=== PATIENT | female | born 1960 | race Caucasian/White ===

== ENCOUNTER → 2018-09-02 | Outpatient (CLI) | payer OTHER ==
[~2018-09-02] MED LIST: REGADENOSON 0.4 MG/5 ML DISP.SYRIN. IV ONE
--- NOTE | 2018-09-03 16:16 | PCVCIMAG ---
APPROVED REPORT Study performed: 09/02/2018 08:26:39 EXAM: Comprehensive 2D, Doppler, and color-flow Echocardiogram Patient Location: Echo lab Status: routine BSA: 1.88 HR: 60 bpmBP: 132/90 mmHg Rhythm: NSR Other Information Study Quality: Adequate Indications Dyspnea Palpitations Chest Pain 2D Dimensions IVSd: 8.74 (7-11mm) LVDd: 43.65 mm PWd: 8.47 (7-11mm)Ascending Ao: 30.60 (22-36mm) LVDs: 26.22 (25-40mm) Left Atrium: 37.51 (27-40mm) Aortic Root: 28.54 mm LV Single Plane 4CH: 66.13 % LV Single Plane 2CH: 54.31 % Biplane EF: 61.0 % Volumes Left Atrial Volume (Systole) Single Plane 4CH: 63.04 mLSingle Plane 2CH: 57.23 mL LA ESV Index: 33.00 mL/m2 Aortic Valve AoV Peak Jhon.: 1.94 m/s AO Peak Gr.: 15.13 mmHgLVOT Max P.28 mmHg LVOT Max V: 1.03 m/s Mitral Valve E/A Ratio: 1.2 MV Decel. Time: 220.75 ms MV E Max Jhon.: 0.98 m/s MV A Jhon.: 0.80 m/s IVRT: 100.35 ms Pulmonary Valve PV Peak Jhon.: 1.14 m/sPV Peak Gr.: 5.23 mmHg Pulmonary Vein P Vein S: 0.30 m/sP Vein A: 0.30 m/s P Vein D: 0.48 m/sP Vein A Dur.: 141.9 msec P Vein S/D Ratio: 0.63 Tricuspid Valve TR Peak Jhon.: 2.71 m/s TR Peak Gr.: 29.35 mmHg Left Ventricle The left ventricle is normal size. There is normal LV segmental wall motion. There is normal left ventricular wall thickness. Left ventricular systolic function is normal. The left ventricular ejection fraction is within the normal range. LVEF is 60-65%. Grade II - pseudonormal filling dynamics. Right Ventricle The right ventricle is normal size. The right ventricular systolic function is normal. Atria The left atrium size is normal. The right atrium size is normal. Aortic Valve Aortic valve is trileaflet. The aortic valve is mildly calcified. No aortic regurgitation is present. There is no aortic valvular stenosis. Mitral Valve The mitral valve is normal in structure. Trace mitral regurgitation. No evidence of mitral valve stenosis. Tricuspid Valve The tricuspid valve is normal in structure. Mild tricuspid regurgitation with PAP of 36 mmHg. Pulmonic Valve The pulmonary valve is normal in structure. Mild pulmonic regurgitation. Great Vessels The aortic root is normal in size. IVC is normal in size and collapses >50% with inspiration. Pericardium There is no pericardial effusion. There is no pleural effusion. <Conclusion> The left ventricle is normal size. LVEF is 60-65%. Aortic valve is trileaflet. The aortic valve is mildly calcified. The mitral valve is normal in structure. Trace mitral regurgitation. The tricuspid valve is normal in structure. Mild tricuspid regurgitation with PAP of 36 mmHg. The pulmonary valve is normal in structure. Mild pulmonic regurgitation. There is no pericardial effusion. There is no pleural effusion.
--- NOTE | 2018-09-04 11:48 | PCVCIMAG ---
APPROVED REPORT Imaging Protocol: Rest Tc-99m/Stress Tc-99m 1 day Study performed: 09/02/2018 09:29:12 Indication: Chest discomfort, Palpitations, Lightheadedness Patient Location: Out-Patient Stress Nurse: Franca Plaza RN, Kristen Patrick RN [place] Tech:STEFAN Ron Ht: 5 ft 6 in Wt: 165 lbs BSA: 1.84 m2 HR: 63 bpm BP: 150/70 mmHg BMI: 26.62 Medical History Medical History: Hyperlipidemia, HTN, Current Smoker Medications: Metoprolol, Lipitor, HCTZ Allergies: No known drug allergies Cardiac Risk Factors: Age Pretest Chest Pain Characteristics: No chest pain Exercise History: Physically active Meds Held (24 hrs): Metoprolol Resting Data Rest SPECT myocardial perfusion imaging was performed in supine position 45 minutes following the intravenous injection of 10.6 mCi of Tc-99m Sestamibi. Time of rest injection: 914 Date: 09/02/2018 Administration Route: IV Administration Site: Right AC Pharmacologic Stress Pharmacologic stress test was performed by injecting Regadenoson 0.4 mg IV push over 10-15 seconds immediately followed by the intravenous injection of 34.1 mCi of Tc-99m Sestamibi. Time of stress injection: 0 Date: 09/02/2018 Administration Route: IV Administration Site: Right AC Gated Stress SPECT was performed 45 minutes after stress injection. The images were gated to evaluate regional wall motion and calculate left ventricular ejection fraction. Stress Test Details Stress Test: Pharmacologic stress was paired with low level exercise. Reason for pharmacologic stress test: unable to achieve Philip protocol.. HRMax Heart Rate (APMHR): 163 bpm Resting HR: 63 bpmTarget HR (85% APMHR): 138 bpm Max HR Achieved: 101 bpm % of APMHR: 61 Recovery HR: 81 bpm BP Resting BP: 150/70 mmHg Max BP: 142/70 mmHg Recovery BP: 130/60 mmHg ECG Resting ECG: Sinus Rhythm, nonspecific ST-T abnormalities Stress ECG: Sinus Tachycardia, nonspecific ST-T abnormalities Recovery ECG: Sinus Rhythm, nonspecific ST-T abnormalities Clinical Reason for Termination: Completed protocol Stress Symptoms: Nausea, Leg Fatigue Exercise duration: 4 min 00 sec Exercise capacity: 1.6 METs Symptoms resolved with caffeine. Stress ECG Conclusion 1. Adequate response to intravenous Lexiscan 2. Inadequate heart rate for ECG diagnosis Study Data Post stress, the left ventricular ejection was 77%.. SSS: 0 SRS: 0 SDS: 0 TID = 1.02. Perfusion There is a medium area of moderately reduced uptake in the basal and mid segment of the anterolateral wall which is seen on the stress images and improves on the resting images. This area thickens and moves normally and is most consistent with ischemia. Wall Motion Normal left ventricular wall motion. Nuclear Conclusion ECG Findings: non-diagnostic Clinical Findings: negative for ischemia Nuclear Findings: positive for ischemia Exercise Capacity: not assessed Left Ventricular Function: normal 1. Intermediate risk study with evidence of inducible ischemia involving the basilar and mid anterolateral wall 2. Post stress left ventricular ejection fraction: 77% without wall motion abnormalities <Conclusion> 1. Adequate response to intravenous Lexiscan 2. Inadequate heart rate for ECG diagnosis
== END | disposition home or self-care (01) ==
LOC: PCVCIMAG 08:16
PROVIDERS: ATTEND Internal Medicine
DX: I08.8 Other rheumatic multiple valve diseases (principal); R00.2 Palpitations; R07.9 Chest pain, unspecified; R06.09 Other forms of dyspnea
CPT/HCPCS: 78452; 93017; 93306; A9500; J2785